=== PATIENT | male | born 1960 | race Caucasian/White ===

== ENCOUNTER 2020-12-26 10:44 | Day surgery (SDC) | payer BC ==
[2020-12-26] VITALS (9 sets, daily range): BP systolic 121–144; BP diastolic 80–89; PULSE 62–74; TEMP 98.2
[~2020-12-26] VITALS: Ht 177.8 cm; Wt 99.9 kg
[2020-12-26 11:35] LABS: HEMATOCRIT 42.4 % (42.0-52.0); HEMOGLOBIN 14.5 g/dl (13.5-18.0); MEAN CELL VOLUME 85 fl (80.0-100.0); MEAN CORPUSCULAR HEMOGLOBIN 29 pg (27.0-31.0); MEAN CORPUSCULAR HGB CONC 34 g/dl (33.0-37.0); MEAN PLATELET VOLUME 9.6 fl (7.4-10.4); PLATELET COUNT 266 K/mm3 (130-400); REDCELL DISTRIBUTION WIDTH-CV 13.5 % (11.5-14.5)
[2020-12-26 11:42] LABS: PROTHROMBIN TIME 11.5 SECONDS (9.7-12.8)
[2020-12-26 11:45] LABS: PARTIAL THROMBOPLASTIN TIME 36.2 SECONDS (26.0-37.0)
[2020-12-26] MEDS ORDERED: PROBIOTIC BLEN1 EACH PO (12:21)
[2020-12-26] MEDS ORDERED: ACTIFED PO (12:21)
[2020-12-26] MEDS ORDERED: GLUCOSAMIN 500 PO (12:22)
[2020-12-26] MEDS ORDERED: PLAVIX 75MG TAB75 MG PO (12:22)
[2020-12-26] MEDS ORDERED: ASPIRIN E.C. 8181 MG PO (12:23)
[2020-12-26] MEDS ORDERED: TOPROL XL 50MG50 MG PO (12:24)
[2020-12-26 12:38] LABS: CALCIUM 9.5 mg/dL (8.4-10.2); CREATININE, serum 1.03 mg/dL (0.72-1.25); POTASSIUM 4.4 mmol/L (3.5-4.5)
--- NOTE | 2020-12-26 13:01 | NUR ---
SEE MERGE DOCUMENTATION FOR MEDICATION ADMINISTRTAION AND INRA/POST PROCEDURE SEDATION ASSESSMENTS.
--- NOTE | 2020-12-26 13:45 | NUR ---
Report from Misty LAMAR. 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 Alert and oriented, denies pain and needs at this time. Right Tband with 12 cc air CD&I, good pulses and cap refill < 3 secs. VSS
--- NOTE | 2020-12-26 15:53 | NUR ---
12 cc air released from right Tband and dressing applied. INT discontinued intact.
--- NOTE | 2020-12-26 16:06 | NUR ---
Discharge instructions given. Transferred to private car by rosalee
== END 2020-12-26 16:15 | disposition home or self-care (01) ==
LOC: COL.CAR 10:44
PROVIDERS: Internal Medicine Interventional Cardiology
DX: I20.8 Other forms of angina pectoris (principal); I49.3 Ventricular premature depolarization; Z79.899 Other long term (current) drug therapy; Z79.02 Long term (current) use of antithrombotics/antiplatelets; Z79.82 Long term (current) use of aspirin
CPT/HCPCS: C1769; J1644; J2250; J3010; Q9967